=== PATIENT | male | born 1990 | race Two or more races ===

== ENCOUNTER 2016-07-28 04:17 | Emergency (ER) | payer OTHER ==
[~2016-07-28] VITALS: Ht 182.9 cm; Wt 86.9 kg
[~2016-07-28 04:17] MED LIST: ACYCLOVIR800 MG PO; INDOCIN50 MG PO
[2016-07-28] MEDS ORDERED: CLEOCIN300 MG PO (04:55)
[2016-07-28 05:27] VITALS: BP 150/98
== END 2016-07-28 05:26 | disposition home or self-care (01) ==
LOC: EME 04:17
DX: K13.0 Diseases of lips (principal); Z87.891 Personal history of nicotine dependence
CPT/HCPCS: 99281; 99284

== ENCOUNTER 2016-08-07 06:12 | Emergency (ER) | payer OTHER ==
[~2016-08-07] VITALS: Ht 182.9 cm; Wt 86.4 kg
[~2016-08-07 06:12] MED LIST changes: +CLEOCIN300 MG PO
[2016-08-07] MEDS ORDERED: FLEXERIL10 MG PO (07:05)
[2016-08-07] MEDS ORDERED: MOTRIN800 MG PO (07:05)
[2016-08-07 07:17] VITALS: BP 129/84
== END 2016-08-07 07:18 | disposition home or self-care (01) ==
LOC: EME 06:12
DX: S39.012A Strain of muscle, fascia and tendon of lower back, initial encounter (principal); X50.9XXA Other and unspecified overexertion or strenuous movements or postures, initial encounter; Y92.002 Bathroom of unspecified non-institutional (private) residence as the place of occurrence of the external cause; Y99.8 Other external cause status; Y93.I9 Activity, other involving external motion; M54.41 Lumbago with sciatica, right side; Z91.09 Other allergy status, other than to drugs and biological substances
CPT/HCPCS: 99281; 99283

== ENCOUNTER 2017-01-25 22:42 | Emergency (ER) | payer BC ==
[~2017-01-25] VITALS: Ht 182.9 cm; Wt 84.5 kg
[~2017-01-25 22:42] MED LIST changes: +FLEXERIL10 MG PO; +MOTRIN800 MG PO
[2017-01-25 23:04] VITALS: BP 143/83
[2017-01-26] MEDS ORDERED: FLONASE16 G1 BOTH NARES (00:18)
== END 2017-01-26 00:50 | disposition home or self-care (01) ==
LOC: EME 22:42
DX: J34.89 Other specified disorders of nose and nasal sinuses (principal)
CPT/HCPCS: 70486; 71020; 87651 90; 99281; 99283